=== PATIENT | male | born 1995 | race African-American/Black ===

== ENCOUNTER 2021-12-01 11:05 | Emergency (ER) | payer SELFPAY ==
[2021-12-01] MEDS ORDERED: MORPHINE 2 MG/ML SYR ONE (11:19)
[2021-12-01] MEDS ORDERED: NA CHLORIDE 0.9% 1,000 ML ONE ×2 (11:19→12:22)
[2021-12-01] MEDS ORDERED: ONDANSETRON 4 MG/2 ML VIAL ONE (11:19)
[2021-12-01] MEDS ORDERED: FAMOTIDINE 20 MG/2 ML VIAL IV ONE (11:19)
[2021-12-01 11:24] LABS: Absolute Lymphocytes (CBC) 2.5 K/uL (0.7-4.9); Hematocrit 48.6 % (39.6-49.0); Lymphocytes % 28.7 % (15.3-44.8); MPV 7.5 fL (7.6-11.3); RBC Red Blood Cell Count 5.78 M/uL (4.33-5.43)
--- NOTE | 2021-12-01 11:40 | RAD REPORT ---
EXAM DESCRIPTION: CTAbdomen Pelvis Wo Contrast - 12/01/2021 11:30 am CLINICAL HISTORY: ABD PAIN COMPARISON: Abdomen Pelvis W Contrast dated 11/06/2021; Abdomen Pelvis W Contrast dated 10/06/2018 ; Abdomen Pelvis W Contrast dated 10/28/2016; CT ABD PELVIS W CONTRAST dated 01/13/2014No comparisons TECHNIQUE: CT of the abdomen and pelvis was performed. All CT scans are performed using dose optimization technique as appropriate and may include automated exposure control or mA/KV adjustment according to patient size. FINDINGS: Lower chest: No acute abnormality. Liver: No acute abnormality or suspicious lesions. Biliary: No biliary ductal dilatation. Stomach: No significant focal abnormality. Duodenum: No significant focal abnormality. Pancreas: No significant abnormality. Spleen: No significant abnormality. Adrenal: No suspicious lesions. Kidney/ureter: No hydronephrosis. No renal calculi. Retroperitoneum: No retroperitoneal adenopathy. Vascular: No aneurysm. Bowel: Multiple air-fluid levels are present within the small bowel. No transition point to suggest b owel obstruction this time.. Peritoneum: Mesenteric edema cyst with a small bowel. Prominent mesenteric lymph nodes. Bladder: Grossly unremarkable. Reproductive: No adnexal masses. Bones: No acute fracture. Other: n/a IMPRESSION: Small air-fluid levels the small bowel and mesenteric edema without discrete transition point likely reflecting an enteritis. No bowel obstruction. Normal appendix.
[2021-12-01] MEDS ORDERED: HYDROMORPHONE HCL 1 MG/ML INJ ONE (11:45)
[2021-12-01 12:12] LABS: ALT/SGPT 128 U/L (12-78); AST/SGOT 74 U/L (15-37); Alkaline Phosphatase 75 U/L (45-117); BUN Blood Urea Nitrogen 13 mg/dL (7-18); Bicarbonate 19 mmol/L (21-32); Bilirubin Total 0.6 mg/dL (0.2-1.0); Glucose Level 153 mg/dL (74-106); Lipase 874 U/L (73-393); Potassium 3.7 mmol/L (3.5-5.1); Protein, Total 7.8 g/dL (6.4-8.2); Sodium Level 139 mmol/L (136-145)
[2021-12-01] MEDS ORDERED: METOCLOPRAMIDE 10 MG/2mL INJ ONE (12:21)
[2021-12-01] MEDS ORDERED: LORazepam 2 MG/ML VIAL ONE (12:22)
--- NOTE | 2021-12-01 13:16 | RAD REPORT ---
EXAM DESCRIPTION: US - Abdomen Exam Limited - 12/01/2021 1:08 pm CLINICAL HISTORY: ABD PAIN COMPARISON: Abdomen Pelvis Wo Contrast dated 12/01/2021 FINDINGS: The gallbladder demonstrates no gallstones. No pericholecystic fluid or gallbladder wall t hickening. The common bile duct is normal measuring 2 mm. The liver demonstrates no findings of intrahepatic biliary dilatation. IMPRESSION: Unremarkable examination.
--- NOTE | 2021-12-01 13:34 | ER ---
Nurse's Notes [facility] Name: Anthony Sotomayor Jr Age: 26 yrs Sex: Male : 1995 Arrival Date: 12/01/2021 Time: 11:06 Bed 19 Private MD: Diagnosis: Nausea with vomiting, unspecified;Epigastric abdominal tenderness;Other viral enteritis Presentation: 12/01 11:10 Chief complaint: EMS states: Sudden onset of severe epigastric discomfort just prior to ss arrival. Pt belched en route to ED and reports that his pain is significantly better, 10/03. Coronavirus screen: Client denies travel out of the [place] in the last 14 days. Ebola Screen: Patient denies exposure to infectious person. Patient denies travel to an Ebola-affected area in the 21 days before illness onset. Initial Sepsis Screen: Does the patient meet any 2 criteria? No. Patient's initial sepsis screen is negative. Does the patient have a suspected source of infection? No. Patient's initial sepsis screen is negative. Risk Assessment: Do you want to hurt yourself or someone else? Patient reports no desire to harm self or others. Onset of symptoms was December 01, 2021. 11:10 Method Of Arrival: EMS: [facility] ss 11:10 Acuity: KAMRAN 3 ss Historical: - Allergies: 11:12 Bees; ss 11:12 Iodine; ss 11:12 SHELLFISH; ss - Home Meds: 11:12 None [Active]; ss - PMHx: 11:12 Asthma; ss - PSHx: 11:12 None; ss - Immunization history:: Client reports having NOT received the Covid vaccine. - Social history:: Smoking status: Reported history of juuling and/or vaping. - Family history:: not pertinent. Screenin:33 Abuse screen: Denies threats or abuse. Denies injuries from another. Nutritional ww screening: No deficits noted. Tuberculosis screening: No symptoms or risk factors identified. Fall Risk None identified. Assessment: 11:32 General: Appears in no apparent distress. uncomfortable, Behavior is cooperative. Pain: ww Complains of pain in epigastric area, right upper quadrant and left upper quadrant. Neuro: Level of Consciousness is awake, alert, obeys commands, Oriented to person, place, time, situation, Moves all extremities. Speech is normal. Cardiovascular: Capillary refill < 3 seconds Patient's skin is warm and dry. Respiratory: Airway is patent Respiratory effort is even, unlabored, Respiratory pattern is regular, symmetrical. GI: Abdomen is non-distended, Reports indigestion, nausea. : No signs and/or symptoms were reported regarding the genitourinary system. EENT: No signs and/or symptoms were reported regarding the EENT system. Derm: No signs and/or symptoms reported regarding the dermatologic system. Skin is intact, is healthy with good turgor, Skin is pink, warm \T\ dry. 11:55 General: Appears uncomfortable, Behavior is anxious, crying. Neuro:. Cardiovascular:. ww Derm: Skin is diaphoretic. 12:30 Reassessment: Patient and/or family updated on plan of care and expected duration. Pain ww level reassessed. General: Appears in no apparent distress. Behavior is sleeping. 13:19 Reassessment: Dr. Nelson at bedside reassessing patient at this time and discussing ss results/ plan of care. 13:50 Reassessment: Patient appears in no apparent distress at this time. Patient and/or ww family updated on plan of care and expected duration. Pain level reassessed. Patient is alert, oriented x 3, equal unlabored respirations, skin warm/dry/pink. General: Appears in no apparent distress. comfortable, Behavior is calm, cooperative. Respiratory: Airway is patent Respiratory effort is even, unlabored, Respiratory pattern is regular, symmetrical. 14:20 Reassessment: Patient appears in no apparent distress at this time. No changes from ww previously documented assessment. Patient and/or family updated on plan of care and expected duration. Pain level reassessed. Patient is alert, oriented x 3, equal unlabored respirations, skin warm/dry/pink. Vital Signs: 11:10 BP 122 / 79; Pulse 60; Resp 15; Temp 97.5(TE); Pulse Ox 97% on R/A; Height 6 ft. 1 in. ss (185.42 cm); Pain 2/10; 13:45 BP 109 / 49; Pulse 58; Resp 16; Pulse Ox 97% on R/A; ww 14:30 BP 107 / 49; Pulse 76; Resp 16; Pulse Ox 98% on R/A; ww 15:03 BP 109 / 50; Pulse 56; Resp 16; Pulse Ox 96% on R/A; ww ED Course: 11:06 Patient arrived in ED. ds1 11:06 Aiden Nelson MD is Attending Physician. dom 11:12 Triage completed. ss 11:12 Arabella Espinoza, RN is Primary Nurse. ww 11:12 Arm band placed on right wrist. ss 11:31 Abdomen In Process Unspecified. EDMS 11:33 Patient has correct armband on for positive identification. Bed in low position. Call ww light in reach. Side rails up X 1. Adult w/ patient. Pulse ox on. NIBP on. 11:33 Maintain EMS IV. Dressing intact. Good blood return noted. Site clean \T\ dry. Gauge \T\ ww site: 20g left ac. 12:10 Inserted saline lock: 20 gauge in right antecubital area, using aseptic technique. ww 13:10 US Abdomen Limited In Process Unspecified. EDMS 13:31 Sylvester Hart MD is Referral Physician. dom 15:04 No provider procedures requiring assistance completed. IV discontinued, bleeding ww controlled, No redness/swelling at site. Pressure dressing applied. Administered Medications: 11:15 Drug: NS 0.9% 1000 ml Route: IV; Rate: 1 bolus; Site: left antecubital; ww 11:15 Drug: morphine 2 mg Route: IVP; Site: left antecubital; ww 11:18 Drug: Zofran (Ondansetron) 4 mg Route: IVP; Site: left antecubital; ww 11:21 Drug: Pepcid (famotidine) 20 mg Route: IVP; Site: left antecubital; ww 11:43 Drug: Dilaudid (HYDROmorphone) 1 mg Route: IVP; Site: left antecubital; jh6 12:18 Drug: Reglan (metoCLOPramide) 10 mg Route: IVP; Site: right antecubital; ww 12:24 Drug: Ativan (LORazepam) 1 mg Route: IVP; Site: right antecubital; ww 13:30 Drug: NS 0.9% 1000 ml Route: IV; Rate: 1 bolus; Site: right antecubital; ww Outcome: 13:34 Discharge ordered by . dom 15:05 Patient left the ED. ww Signatures: Dispatcher [employer] EDAiden Coronado MD MD cha Sanford, Demi ds1 Savannah Rodriguez, RN RN ss Korina Frye, RN RN jh6 Arabella Espinoza, RN RN ww
--- NOTE | 2021-12-01 13:35 | EDPHYS ---
Physician Documentation [facility] Name: Anthony Sotomayor Jr Age: 26 yrs Sex: Male : 1995 Arrival Date: 12/01/2021 Time: 11:06 Bed 19 Private MD: ED Physician Aiden Nelson HPI: 12/01 11:14 This 26 yrs old Black Male presents to ER via EMS with complaints of upper abdominal dom pain this morning. 11:14 The patient presents with abdominal pain in the epigastric area, in the upper abdomen. dom Onset: The symptoms/episode began/occurred this morning, today. The patient presents to the emergency department with nausea, that is moderate. Onset: The symptoms/episode began/occurred this morning. Possible causes: unknown. The symptoms are aggravated by nothing. The symptoms are alleviated by nothing. The symptoms do not radiate. Associated signs and symptoms: The patient has no apparent associated signs or symptoms. Associated signs and symptoms: Pertinent positives: nausea and vomiting. Modifying factors: The symptoms are alleviated by nothing, the symptoms are aggravated by nothing. Historical: - Allergies: 11:12 Bees; ss 11:12 Iodine; ss 11:12 SHELLFISH; ss - Home Meds: 11:12 None [Active]; ss - PMHx: 11:12 Asthma; ss - PSHx: 11:12 None; ss - Immunization history:: Client reports having NOT received the Covid vaccine. - Social history:: Smoking status: Reported history of juuling and/or vaping. - Family history:: not pertinent. ROS: 11:14 Constitutional: Negative for fever, chills, and weight loss, Eyes: Negative for injury, dom pain, redness, and discharge, ENT: Negative for injury, pain, and discharge, Neck: Negative for injury, pain, and swelling, Cardiovascular: Negative for chest pain, palpitations, and edema, Respiratory: Negative for shortness of breath, cough, wheezing, and pleuritic chest pain, Back: Negative for injury and pain, : Negative for injury, bleeding, discharge, and swelling, MS/Extremity: Negative for injury and deformity, Skin: Negative for injury, rash, and discoloration, Neuro: Negative for headache, weakness, numbness, tingling, and seizure, Psych: Negative for depression, anxiety, suicide ideation, homicidal ideation, and hallucinations, Allergy/Immunology: Negative for hives, rash, and allergies, Endocrine: Negative for neck swelling, polydipsia, polyuria, polyphagia, and marked weight changes, Hematologic/Lymphatic: Negative for swollen nodes, abnormal bleeding, and unusual bruising. 11:14 Abdomen/GI: Positive for abdominal pain, nausea and vomiting, vomiting, of the epigastric area, right upper quadrant and left upper quadrant. Exam: 11:14 Constitutional: This is a well developed, well nourished patient who is awake, alert, dom and in no acute distress. Head/Face: Normocephalic, atraumatic. Eyes: Pupils equal round and reactive to light, extra-ocular motions intact. Lids and lashes normal. Conjunctiva and sclera are non-icteric and not injected. Cornea within normal limits. Periorbital areas with no swelling, redness, or edema. ENT: Nares patent. No nasal discharge, no septal abnormalities noted. Tympanic membranes are normal and external auditory canals are clear. Oropharynx with no redness, swelling, or masses, exudates, or evidence of obstruction, uvula midline. Mucous membranes moist. Neck: Trachea midline, no thyromegaly or masses palpated, and no cervical lymphadenopathy. Supple, full range of motion without nuchal rigidity, or vertebral point tenderness. No Meningismus. Chest/axilla: Normal chest wall appearance and motion. Nontender with no deformity. No lesions are appreciated. Cardiovascular: Regular rate and rhythm with a normal S1 and S2. No gallops, murmurs, or rubs. Normal PMI, no JVD. No pulse deficits. Respiratory: Lungs have equal breath sounds bilaterally, clear to auscultation and percussion. No rales, rhonchi or wheezes noted. No increased work of breathing, no retractions or nasal flaring. Back: No spinal tenderness. No costovertebral tenderness. Full range of motion. Male : Normal genitalia with no discharge or lesions. Skin: Warm, dry with normal turgor. Normal color with no rashes, no lesions, and no evidence of cellulitis. MS/ Extremity: Pulses equal, no cyanosis. Neurovascular intact. Full, normal range of motion. Neuro: Awake and alert, GCS 15, oriented to person, place, time, and situation. Cranial nerves II-XII grossly intact. Motor strength 5/5 in all extremities. Sensory grossly intact. Cerebellar exam normal. Normal gait. Psych: Awake, alert, with orientation to person, place and time. Behavior, mood, and affect are within normal limits. 11:14 Respiratory: mild respiratory distress is noted, Respirations: normal, no acute changes, Breath sounds: are clear throughout. 11:14 Abdomen/GI: Inspection: abdomen appears normal, Bowel sounds: normal, Palpation: moderate abdominal tenderness, in the epigastric area and left upper quadrant, Liver: no appreciated palpable abnormalities, Hernia: not appreciated. 12:16 ECG was reviewed by the Attending Physician. [facility] Vital Signs: 11:10 BP 122 / 79; Pulse 60; Resp 15; Temp 97.5(TE); Pulse Ox 97% on R/A; Height 6 ft. 1 in. ss (185.42 cm); Pain 2/10; 13:45 BP 109 / 49; Pulse 58; Resp 16; Pulse Ox 97% on R/A; ww 14:30 BP 107 / 49; Pulse 76; Resp 16; Pulse Ox 98% on R/A; ww 15:03 BP 109 / 50; Pulse 56; Resp 16; Pulse Ox 96% on R/A; ww MDM: 11:07 Patient medically screened. [facility] 11:19 Differential diagnosis: Nonspecific abd pain, gastritis, diverticulitis, viral dom gastroenteritis, gastroenteritis, cholecystitis, Cholelithiasis, diverticulitis, non-specific abd pain, pancreatitis, Peptic Ulcer Disease, urinary tract infection. Data reviewed: vital signs, nurses notes, lab test result(s), radiologic studies, CT scan, ultrasound. Data interpreted: Pulse oximetry: on room air is 97 %. Test interpretation: by ED physician or midlevel provider: ECG, plain radiologic studies. Counseling: I had a detailed discussion with the patient and/or guardian regarding: the historical points, exam findings, and any diagnostic results supporting the discharge/admit diagnosis, lab results, radiology results. 12/01 11:07 Order name: CBC with Diff; Complete Time: 11:40 [facility] 12/01 11:07 Order name: CMP [facility] 12/01 11:07 Order name: Lipase [facility] 12/01 11:13 Order name: US Abdomen Limited [facility] 12/01 11:51 Order name: COVID-19 SARS RT PCR (Document "Date of Onset" if Symptomatic) 12/01 11:20 Order name: Abdomen ; Complete Time: 11:42 EDMS 12/01 11:07 Order name: IV Saline Lock; Complete Time: 11:24 dom 12/01 11:07 Order name: Labs collected and sent; Complete Time: 11:24 dom 12/01 11:40 Order name: EKG; Complete Time: 11:40 dom 12/01 11:40 Order name: EKG - Nurse/Tech; Complete Time: 11:49 dom 12/01 11:41 Order name: Labs - recollect needed: recollect green top hemolyzed; Complete Time: 11:49eb EC:16 Rate is 82 beats/min. Rhythm is regular. QRS [place] is Normal. ME interval is normal. QRS dom interval is normal. QT interval is normal. No Q waves. T waves are Normal. No ST changes noted. Clinical impression: LVH and No evidence of ischemia. Interpreted by me. Reviewed by me. Administered Medications: 11:15 Drug: NS 0.9% 1000 ml Route: IV; Rate: 1 bolus; Site: left antecubital; ww 11:15 Drug: morphine 2 mg Route: IVP; Site: left antecubital; ww 11:18 Drug: Zofran (Ondansetron) 4 mg Route: IVP; Site: left antecubital; ww 11:21 Drug: Pepcid (famotidine) 20 mg Route: IVP; Site: left antecubital; ww 11:43 Drug: Dilaudid (HYDROmorphone) 1 mg Route: IVP; Site: left antecubital; [facility] 12:18 Drug: Reglan (metoCLOPramide) 10 mg Route: IVP; Site: right antecubital; ww 12:24 Drug: Ativan (LORazepam) 1 mg Route: IVP; Site: right antecubital; ww 13:30 Drug: NS 0.9% 1000 ml Route: IV; Rate: 1 bolus; Site: right antecubital; ww Disposition Summary: 12/01/21 13:34 Discharge Ordered Location: Home dom Problem: new dom Symptoms: have improved dom Condition: Stable dom Diagnosis - Nausea with vomiting, unspecified dom - Epigastric abdominal tenderness dom - Other viral enteritis dom Followup: dom - With: Private Physician - When: 2 - 3 days - Reason: Recheck today's complaints, Continuance of care, Re-evaluation by your physician Followup: dom - With: Sylvester Hart MD - When: 2 - 3 days - Reason: Recheck today's complaints, Re-evaluation by your physician Discharge Instructions: - Discharge Summary Sheet dom - Abdominal Pain, Adult dom - Nausea and Vomiting, Adult dom - Nausea, Adult dom - Acute Pancreatitis dom - Acute Pancreatitis, [id number] dom - Abdominal Pain, Adult, [id number] dom - Alcohol Abuse and Nutrition dom - Nausea, Adult, [id number] dom - Vomiting, Adult [facility] Forms: - Medication Reconciliation Form [facility] - Thank You Letter [facility] - Antibiotic Education [facility] - Prescription Opioid Use [facility] Prescriptions: - Pepcid 20 mg Oral Tablet - take 1 tablet by ORAL route every 12 hours for 15 days; 30 tablet; Refills: 0, [facility] Product Selection Permitted - Zofran 4 mg Oral Tablet - take 1 tablet by ORAL route every 12 hours As needed; 20 tablet; Refills: 0, [facility] Product Selection Permitted - dicyclomine 20 mg Oral Tablet - take 1 tablet by ORAL route 4 times per day; 28 tablet; Refills: 0, Product [facility] Selection Permitted Signatures: Dispatcher [employer] EDAiden Coronado MD MD cha Smirch, Shelby, RN RN ss Emily Olivera Jennifer, RN RN jh Arabella Espinoza RN RN ww Corrections: (The following items were deleted from the chart) 11:20 11:13 Abdomen Pelvis W [id number] ordered. EDMN EDMS
[2021-12-01 15:57] VITALS: TEMP 97.5
[2021-12-01 16:02] VITALS: BP 109/50; O2SAT 96
--- NOTE | 2021-12-02 09:38 | EKG ---
Test Date: 2021-12-01 Test Time: 11:42:57 Hardware Manager: JAIMIE MEASUREMENT RESULTS: Intervals: Rate: 82 AK: 144 QRSD: 98 QT: 400 QTc: 467 [place]: P: 39 AK: 144 QRS: -28 T: 7 INTERPRETIVE STATEMENTS: Sinus rhythm with marked sinus arrhythmia Minimal voltage criteria for LVH, may be normal variant Nonspecific T wave abnormality Prolonged QT Abnormal ECG No previous ECG available for comparison Electronically Signed On 12-02-21 09:35:41 CDT by Channing Calloway
--- NOTE | 2021-12-02 09:38 | EKG ---
Test Date: 2021-12-01 Test Time: 11:43:35 Health Information Director: JAIMIE MEASUREMENT RESULTS: Intervals: Rate: 83 WV: 150 QRSD: 92 QT: 376 QTc: 441 [place]: P: 51 WV: 150 QRS: -29 T: 7 INTERPRETIVE STATEMENTS: Normal sinus rhythm with sinus arrhythmia Moderate voltage criteria for LVH, may be normal variant Nonspecific ST abnormality Abnormal ECG Compared to ECG 12/01/2021 11:42:57 ST (T wave) deviation now present T-wave abnormality no longer present Prolonged QT interval no longer present Electronically Signed On 12-02-21 09:35:39 CDT by Channing Calloway
== END 2021-12-01 15:05 | disposition home or self-care (01) ==
LOC: ER 11:05
DX: A08.39 Other viral enteritis (principal); R11.2 Nausea with vomiting, unspecified; Z20.822 Contact with and (suspected) exposure to COVID-19; Z91.013 Allergy to seafood; Z91.030 Bee allergy status; Z91.048 Other nonmedicinal substance allergy status
CPT/HCPCS: 36415; 74176; 76705; 80053; 83690; 85025; 93005; 99284; J1170; J2270; J2405; J2765; J7030; U0003

== ENCOUNTER 2022-08-31 12:11 | Emergency (ER) | payer SELFPAY ==
[2022-08-31 13:11] LABS: Absolute Lymphocytes (CBC) 2.6 K/uL (0.7-4.9); Hematocrit 46.7 % (39.6-49.0); Lymphocytes % 40.6 % (15.3-44.8); MCV 83.7 fL (80-100); MPV 7.5 fL (7.6-11.3); RBC Red Blood Cell Count 5.58 M/uL (4.33-5.43)
[2022-08-31] MEDS ORDERED: MORPHINE 4 MG/ML SYR ONE (13:14)
[2022-08-31] MEDS ORDERED: Ringers Lactate 1,000 ML IV ONE (13:14)
[2022-08-31] MEDS ORDERED: ONDANSETRON 4 MG/2 ML VIAL ONE (13:14)
[2022-08-31 13:28] LABS: Albumin 3.9 g/dL (3.4-5.0); Bilirubin Total 0.4 mg/dL (0.2-1.0); Potassium 3.8 mmol/L (3.5-5.1); Protein, Total 7.8 g/dL (6.4-8.2)
--- NOTE | 2022-08-31 14:22 | RAD REPORT ---
EXAM DESCRIPTION: CT - Abdomen Pelvis Wo Contrast - 08/31/2022 2:09 pm CLINICAL HISTORY: Abdominal pain. epigastric pain COMPARISON: Abdomen Pelvis Wo Contrast dated 12/01/2021 TECHNIQUE: CT imaging of the abdomen and pelvis was performed without contrast. Solid organ, bowel a nd vascular assessment is limited due to lack of IV and oral contrast. All CT scans are performed using dose optimization technique as appropriate and may include automated exposure control or mA/KV adjustment according to patient size. FINDINGS: The lower lung prince are clear. The liver, spleen, pancreas, adrenal glands and kidneys are within normal limits for a limited non-co ntrast examination. No bowel obstruction, free air, free fluid or abscess. The appendix is normal. The osseous structures are within normal limits. IMPRESSION: No acute intra-abdominal or pelvic findings. A limited non-contrast examination was performed as detailed.
[2022-08-31] MEDS ORDERED: MAGNES/ALUMIN/SIMET 30ML UCUP ONE (14:51)
[2022-08-31] MEDS ORDERED: LIDOCAINE VISCOUS 2% SOLN 15 ML UDC ONE (14:51)
--- NOTE | 2022-08-31 15:40 | EDPHYS ---
Physician Documentation [facility] Name: Anthony Sotomayor Jr Age: 26 yrs Sex: Male : 1995 Arrival Date: 08/31/2022 Time: 12:11 Bed 24 Private MD: ED Physician Parmjit Shanks HPI: 08/31 15:36 This 26 yrs old Black Male presents to ER via Wheelchair with complaints of Abdominal jmm Pain. 15:36 The patient presents with abdominal pain. Onset: The symptoms/episode began/occurred jmm gradually, 5 day(s) ago. The symptoms do not radiate. Associated signs and symptoms: Pertinent positives: diarrhea. Is a 26-year-old male with history of asthma the presents emerged department with complaints of epigastric abdominal pain began approximately 5 days ago. Symptoms initially began as multiple episodes of diarrhea. States that the pain intensified today. Denies any vomiting but states being nauseous. Denies any surgical abdominal history.. Historical: - Allergies: 12:16 Bees; hb 12:16 Iodine; hb 12:16 SHELLFISH; hb - PMHx: 12:16 Asthma; hb - Immunization history:: Adult Immunizations unknown, Last tetanus immunization: unknown. - Social history:: Smoking status: Patient denies any tobacco usage or history of. ROS: 15:36 Constitutional: Negative for fever, chills, and weight loss, Cardiovascular: Negative jmm for chest pain, palpitations, and edema, Respiratory: Negative for shortness of breath, cough, wheezing, and pleuritic chest pain. 15:36 Abdomen/GI: Positive for abdominal pain, diarrhea. 15:36 All other systems are negative. Exam: 15:36 Constitutional: This is a well developed, well nourished patient who is awake, alert, jmm and in no acute distress. Head/Face: atraumatic. Eyes: EOMI, no conjunctival erythema appreciated ENT: Moist Mucus Membranes Neck: Trachea midline, Supple Chest/axilla: Normal chest wall appearance and motion. Cardiovascular: Regular rate and rhythm. No edema appreciated Respiratory: Normal respirations, no respiratory distress appreciated 15:36 Back: Normal ROM Skin: General appearance color normal MS/ Extremity: Moves all extremities, no obvious deformities appreciated, no edema noted to the lower extremities Neuro: Awake and alert Psych: Behavior is normal, Mood is normal, Patient is cooperative and pleasant 15:36 Abdomen/GI: Inspection: abdomen appears normal, Bowel sounds: normal, Palpation: soft, mild abdominal tenderness, in the epigastric area. Vital Signs: 12:14 BP 97 / 65; Pulse 55; Resp 16; Temp 97.7; Pulse Ox 100% on R/A; Weight 122.47 kg; hb Height 6 ft. 1 in. (185.42 cm); Pain 7/10; 13:45 BP 134 / 74; Pulse 56; Resp 18; Pulse Ox 99% ; kb3 15:00 BP 116 / 66; Pulse 63; Resp 18; Pulse Ox 98% ; kb3 12:14 Body Mass Index 35.62 (122.47 kg, 185.42 cm) hb MDM: 12:26 Patient medically screened. [facility] 15:37 Data reviewed: vital signs, nurses notes. Counseling: I had a detailed discussion with [facility] the patient and/or guardian regarding: the historical points, exam findings, and any diagnostic results supporting the discharge/admit diagnosis, lab results, radiology results, the need for outpatient follow up, to return to the emergency department if symptoms worsen or persist or if there are any questions or concerns that arise at home. Response to treatment: the patient's symptoms have markedly improved after treatment, and as a result, I will discharge patient. ED course: Patient given early appendicitis return precautions. Patient understood and agrees plan of care.. 08/31 12:27 Order name: CBC with Diff; Complete Time: 13:14 [facility] 08/31 12:27 Order name: CMP; Complete Time: 13:30 [facility] 08/31 12:27 Order name: Lipase; Complete Time: 13:30 [facility] 08/31 13:22 Order name: CT Abd/Pelvis - Without Contrast; Complete Time: 14:23 [facility] 08/31 12:27 Order name: IV Saline Lock; Complete Time: 13:45 [facility] 08/31 12:27 Order name: Labs collected and sent; Complete Time: 13:06 [facility] Administered Medications: 13:45 Drug: Zofran (Ondansetron) 4 mg Route: IVP; Site: right hand; jl7 14:40 Follow up: Response: No adverse reaction [facility] 13:45 Drug: morphine 4 mg Route: IVP; Infused Over: 4 mins; Site: right hand; jl7 14:40 Follow up: Response: No adverse reaction; Pain is decreased kb3 13:45 Drug: Lactated Ringers Solution 1000 ml Route: IV; Rate: 1000 bolus; Site: right hand; jl7 14:40 Follow up: Response: No adverse reaction; IV Status: Completed infusion; IV Intake: kb3 1000ml 14:53 Drug: GI Cocktail without - (Maalox Suspension 30 ml, Lidocaine Liquid 2 % 15 kb3 ml) Route: PO; 15:53 Follow up: Response: No adverse reaction; Pain is decreased kb3 Disposition: 16:22 Co-signature as Attending Physician, Parmjit Shanks MD. rn Disposition Summary: 08/31/22 15:39 Discharge Ordered Location: Home [facility] Condition: Stable [facility] Diagnosis - Epigastric pain [facility] Followup: [facility] - With: Yovany Stubbs MD - When: 2 - 3 days - Reason: Recheck today's complaints, Continuance of care, Re-evaluation by your physician Followup: [facility] - With: Syvlester Hart MD - When: 2 - 3 days - Reason: Recheck today's complaints, Continuance of care, Re-evaluation by your physician Followup: jmm - With: Adelso Montoya MD - When: 2 - 3 days - Reason: Recheck today's complaints, Continuance of care, Re-evaluation by your physician Discharge Instructions: - Discharge Summary Sheet [facility] - Abdominal Pain, Adult [facility] Forms: - Medication Reconciliation Form [facility] - Thank You Letter [facility] - Antibiotic Education [facility] - Prescription Opioid Use [facility] - Work release form kb3 Prescriptions: - Carafate 1 gram Oral Tablet - take 1 tablet by ORAL route 4 times per day take on an empty stomach, beginning jmm on waking and last dose at bedtime; 100 tablet; Refills: 0, Product Selection Permitted - Pepcid 20 mg Oral Tablet - take 1 tablet by ORAL route every 12 hours for 10 days; 20 tablet; Refills: 0, [facility] Product Selection Permitted - dicyclomine 20 mg Oral Tablet - take 1 tablet by ORAL route 4 times per day; 30 tablet; Refills: 0, Product [facility] Selection Permitted - ondansetron 4 mg Oral - take 4 milligrams by SUBLINGUAL route every 4-6 hours As needed; 20 tablet; [facility] Refills: 0, Product Selection Permitted Signatures: Dispatcher [employer] Silvino Garcias PA PA jmm Nieto, Roman, MD MD rn Shayna Arevalo RN RN Roby Parra RN RN jl7 Radha Man RN RN kb3
--- NOTE | 2022-08-31 15:40 | ER ---
Nurse's Notes [facility] Name: Anthony Sotomayor Jr Age: 26 yrs Sex: Male : 1995 Arrival Date: 08/31/2022 Time: 12:11 Bed 24 Private MD: Diagnosis: Epigastric pain Presentation: 08/31 12:14 Chief complaint: Diarrhea x 5 days, upper abdominal pain since this morning. hb Coronavirus screen: At this time, the client does not indicate any symptoms associated with coronavirus-19. Ebola Screen: No symptoms or risks identified at this time. Initial Sepsis Screen: Does the patient meet any 2 criteria? No. Patient's initial sepsis screen is negative. Does the patient have a suspected source of infection? No. Patient's initial sepsis screen is negative. Risk Assessment: Do you want to hurt yourself or someone else? Patient reports no desire to harm self or others. Onset of symptoms was August 26, 2022. 12:14 Method Of Arrival: Wheelchair hb 12:14 Acuity: KAMRAN 3 hb Historical: - Allergies: 12:16 Bees; hb 12:16 Iodine; hb 12:16 SHELLFISH; hb - PMHx: 12:16 Asthma; hb - Immunization history:: Adult Immunizations unknown, Last tetanus immunization: unknown. - Social history:: Smoking status: Patient denies any tobacco usage or history of. Screenin:30 [facility] ED Fall Risk Assessment (Adult) History of falling in the last 3 months, kb3 including since admission No falls in past 3 months (0 pts) Confusion or Disorientation No (0 pts) Intoxicated or Sedated No (0 pts) Impaired Gait No (0 pts) Mobility Assist Device Used No (0 pt) Altered Elimination No (0 pt) Score/Fall Risk Level 0 - 2 = Low Risk Oriented to surroundings, Maintained a safe environment, Educated pt \T\ family on fall prevention, incl call for assistance when getting out of bed, Assessed \T\ reinforced patient's understanding of fall precautions, Provided non-skid footwear, Hourly rounding (assess needs \T\ fall precautionary measures) done, Used ambulatory aids as needed (educated on \T\ assisted with), Used gait belt as appropriate. Abuse screen: Denies threats or abuse. Denies injuries from another. Nutritional screening: No deficits noted. Tuberculosis screening: No symptoms or risk factors identified. Assessment: 12:30 General: Appears in no apparent distress. Behavior is calm, cooperative. Pain: kb3 Complains of pain in epigastric area Pain does not radiate. Pain currently is 7 out of 10 on a pain scale. Quality of pain is described as crampy, sharp, Pain began 4 hours ago. Also complains of Diarrhea. 12:30 GI: Bowel sounds present X 4 quads. Abd is soft Abdomen is tender to palpation in kb3 epigastric area, right upper quadrant and left upper quadrant Reports upper abdominal pain, diarrhea. 15:30 Reassessment: Patient appears in no apparent distress at this time. General: Pt reports kb3 feeling better, No episodes of diarrhea since arrival. Vital Signs: 12:14 BP 97 / 65; Pulse 55; Resp 16; Temp 97.7; Pulse Ox 100% on R/A; Weight 122.47 kg; hb Height 6 ft. 1 in. (185.42 cm); Pain 7/10; 13:45 BP 134 / 74; Pulse 56; Resp 18; Pulse Ox 99% ; kb3 15:00 BP 116 / 66; Pulse 63; Resp 18; Pulse Ox 98% ; kb3 12:14 Body Mass Index 35.62 (122.47 kg, 185.42 cm) hb ED Course: 12:11 Patient arrived in ED. as 12:16 Triage completed. hb 12:16 Silvino Bowers PA is PHCP. [facility] 12:16 Parmjit Shanks MD is Attending Physician. [facility] 12:16 Arm band placed on. hb 12:30 No provider procedures requiring assistance completed. kb3 12:49 Patient has correct armband on for positive identification. Bed in low position. Call mm9 light in reach. Warm blanket given. Pulse ox on. NIBP on. 13:00 Missed attempt(s): 22 gauge in left antecubital area. mm9 13:06 CBC with Diff Sent. mm9 13:06 CMP Sent. mm9 13:06 Lipase Sent. mm9 13:06 Initial lab(s) drawn, by wv, sent to lab. mm9 13:30 Missed attempt(s): 20 gauge in right antecubital area. Bleeding controlled, band aid jl7 applied, catheter tip intact. 13:32 Radha Man, RN is Primary Nurse. kb3 13:32 Missed attempt(s): 22 gauge in right antecubital area. Bleeding controlled, band aid jl7 applied, catheter tip intact. 13:38 Missed attempt(s): 22 gauge in right forearm. Bleeding controlled, band aid applied, jl7 catheter tip intact. 13:40 Inserted saline lock: 22 gauge in right hand, using aseptic technique. ,using aseptic jl7 technique. Inserted per pt request. 14:[address] via wheelchair. kb3 14:10 CT Abd/Pelvis - Without Contrast In Process Unspecified. EDMS 14:16 Patient [address] back from [address]. kb3 15:38 Yovany Stubbs MD is Referral Physician. jmm 15:38 Sylvester Hart MD is Referral Physician. jmm 15:39 Adelso Montoya MD is Referral Physician. [facility] 15:53 IV discontinued, intact, bleeding controlled, No redness/swelling at site. Pressure kb3 dressing applied. Administered Medications: 13:45 Drug: Zofran (Ondansetron) 4 mg Route: IVP; Site: right hand; jl7 14:40 Follow up: Response: No adverse reaction kb3 13:45 Drug: morphine 4 mg Route: IVP; Infused Over: 4 mins; Site: right hand; jl7 14:40 Follow up: Response: No adverse reaction; Pain is decreased kb3 13:45 Drug: Lactated Ringers Solution 1000 ml Route: IV; Rate: 1000 bolus; Site: right hand; jl7 14:40 Follow up: Response: No adverse reaction; IV Status: Completed infusion; IV Intake: kb3 1000ml 14:53 Drug: GI Cocktail without - (Maalox Suspension 30 ml, Lidocaine Liquid 2 % 15 kb3 ml) Route: PO; 15:53 Follow up: Response: No adverse reaction; Pain is decreased kb3 Medication: 12:30 VIS not applicable for this client. kb3 Intake: 14:40 IV: 1000ml; Total: 1000ml. kb3 Outcome: 15:39 Discharge ordered by . jm 15:50 Discharged to home ambulatory, with family. kb3 15:50 Condition: stable 15:50 Discharge instructions given to patient, family, Instructed on discharge instructions, the need for admit, medication usage, Demonstrated understanding of instructions, follow-up care, medications, Prescriptions given X 4. 16:10 Patient left the ED. kb3 Signatures: Dispatcher [employer] EDMS Silvino Bowers PA PA jmm Martinez, Amelia as Baxter, Heather RN RN Roby Parra RN RN jl7 Radha Man RN RN kb3 Caryn Fairbanks mm9 Corrections: (The following items were deleted from the chart) 14:08 14:06 General: Appears in no apparent distress. Behavior is calm, cooperative, kb3 kb3 14:08 14:06 Pain: Complains of pain in epigastric area kb3 kb3
[2022-08-31 16:26] VITALS: TEMP 97.7
[2022-08-31 16:38] VITALS: BP 116/66; O2SAT 98
== END 2022-08-31 16:10 | disposition home or self-care (01) ==
LOC: ER 12:11
DX: R10.13 Epigastric pain (principal); Z91.030 Bee allergy status; Z91.013 Allergy to seafood; Z91.048 Other nonmedicinal substance allergy status
CPT/HCPCS: 36415; 74176; 80053; 83690; 85025; 96361; 96374; 96375; 99284; J2405; J7120

== ENCOUNTER 2024-06-06 05:31 | Emergency (ER) | payer SELFPAY ==
[2024-06-06] MEDS ORDERED: MAGNES/ALUMIN/SIMET 30ML UCUP ONE (06:06)
[2024-06-06] MEDS ORDERED: LIDOCAINE VISCOUS 2% 10ML ORAL SOLN ONE (06:07)
[2024-06-06] MEDS ORDERED: PANTOPRAZOLE 40 MG INJ ONE (06:14)
[2024-06-06] MEDS ORDERED: NA CHLORIDE 0.9% 1,000 ML ONE (06:15)
[2024-06-06 06:24] LABS: Absolute Eosinophils 0.3 K/uL (0-0.5); Absolute Lymphocytes (CBC) 1.9 K/uL (0.7-4.9); Absolute Monocytes 0.8 K/uL (0.1-1.3); Absolute Neutrophil 3.5 K/uL (1.8-8.0); Basophils % 0.5 % (0-1.3); Eosinophils % 4.4 % (0-4.4); Hematocrit 52.2 % (39.6-49.0); Hemoglobin 17.7 g/dL (13.6-17.9); Lymphocytes % 29.8 % (15.3-44.8); MCH 28.1 pg (27.0-35.0); MCHC 33.9 g/dL (32.0-36.0); MCV 83.1 fL (80-100); MPV 8.2 fL (7.6-11.3); Monocytes % 11.7 % (3.3-12.3); Neutrophils % 53.6 % (41.7-73.7); Nucleated Red Blood Cells % 0.4 % (0-0); Platelets 279 thou/uL (152-406); RBC Red Blood Cell Count 6.28 M/uL (4.33-5.43); Red Cell Distribution Width 14.5 % (12.1-15.2)
[2024-06-06 06:46] LABS: Albumin 3.8 g/dL (3.4-5.0); Albumin/Globulin Ratio 0.9 (1.1-1.8); Anion Gap 8.5 mEq/L (5.0-15.0); Bilirubin Total 0.8 mg/dL (0.2-1.0); Globulin 4.2 g/dL (2.3-3.5); Potassium 3.5 mEq/L (3.5-5.1)
--- NOTE | 2024-06-06 07:03 | ER ---
Nurse's Notes [facility] Name: Anthony Sotomayor Jr Age: 28 yrs Sex: Male : 1995 Arrival Date: 06/06/2024 Time: 05:31 Bed 15 Private MD: Diagnosis: Epigastric pain;Acute gastritis without bleeding;Hyperglycemia, unspecified;Type 2 diabetes mellitus with hyperglycemia-new onset Presentation: 06/06 05:46 Chief complaint: Patient states: epigastric pain X1 HR. Coronavirus screen: Client lg3 denies travel out of the [place] in the last 14 days. At this time, the client does not indicate any symptoms associated with coronavirus-19. Ebola Screen: No symptoms or risks identified at this time. Initial Sepsis Screen: Does the patient meet any 2 criteria? No. Patient's initial sepsis screen is negative. Does the patient have a suspected source of infection? No. Patient's initial sepsis screen is negative. Risk Assessment: Do you want to hurt yourself or someone else? Patient reports no desire to harm self or others. Onset of symptoms was June 06, 2024. 05:46 Method Of Arrival: Ambulatory lg3 05:46 Acuity: KAMRAN 3 lg3 Triage Assessment: 05:47 General: Appears in no apparent distress. comfortable, Behavior is calm, cooperative. lg3 Pain: Complains of pain in epigastric area Pain does not radiate. EENT: No deficits noted. No signs and/or symptoms were reported regarding the EENT system. Neuro: No deficits noted. Osborne Agitation-Sedation Scale (RASS): 0 - Alert and Calm Level of Consciousness is awake, alert, obeys commands, Oriented to person, place, time, situation. Cardiovascular: No deficits noted. Denies chest pain, shortness of breath, Capillary refill < 3 seconds Clubbing of nail beds is absent JVD is absent Patient's skin is warm and dry. Respiratory: No deficits noted. Airway is patent Respiratory effort is even, unlabored, Respiratory pattern is regular, symmetrical. GI: Abdomen is round non-distended, Reports upper abdominal pain, gaseousness. : No deficits noted. No signs and/or symptoms were reported regarding the genitourinary system. Derm: No deficits noted. No signs and/or symptoms reported regarding the dermatologic system. Skin is intact, is healthy with good turgor, Skin is dry, Skin is normal, Skin temperature is warm. Musculoskeletal: No deficits noted. No signs and/or symptoms reported regarding the musculoskeletal system. Circulation, motion, and sensation intact. Range of motion: intact in all extremities. Historical: - Allergies: 05:47 Bees; lg3 05:47 Iodine; lg3 05:47 SHELLFISH; lg3 - Home Meds: 05:47 None [Active]; lg3 - PMHx: 05:47 Asthma; lg3 - PSHx: 05:47 None; lg3 - Immunization history:: Adult Immunizations up to date. - Infectious Disease History:: Denies. - Social history:: Smoking status: Reported history of juuling and/or vaping. Patient/guardian denies using alcohol, street drugs. - Family history:: not pertinent. Screenin:00 [facility] ED Fall Risk Assessment (Adult) History of falling in the last 3 months, kj2 including since admission No falls in past 3 months (0 pts) Confusion or Disorientation No (0 pts) Intoxicated or Sedated No (0 pts) Impaired Gait No (0 pts) Mobility Assist Device Used No (0 pt) Altered Elimination No (0 pt) Score/Fall Risk Level 0 - 2 = Low Risk Maintained a safe environment, Hourly rounding (assess needs \T\ fall precautionary measures) done. Abuse screen: Denies threats or abuse. Denies injuries from another. Nutritional screening: No deficits noted. Tuberculosis screening: No symptoms or risk factors identified. Assessment: 06:00 General: Appears in no apparent distress. uncomfortable, Behavior is calm, cooperative. kj2 Pain: Complains of pain in epigastric area Pain currently is 8 out of 10 on a pain scale. Neuro: Level of Consciousness is awake, alert, obeys commands, Oriented to person, place, time, situation. Cardiovascular: Patient's skin is warm and dry. Respiratory: Airway is patent Respiratory effort is even, unlabored. GI: Reports epigastric pain. : No signs and/or symptoms were reported regarding the genitourinary system. 06:00 GI: Abdomen is tender to palpation in epigastric area. kj2 07:15 Reassessment: Patient appears in no apparent distress at this time. No changes from kc6 previously documented assessment. Patient and/or family updated on plan of care and expected duration. Pain level reassessed. Patient is alert, oriented x 3, equal unlabored respirations, skin warm/dry/pink. Patient states feeling better. Patient states symptoms have improved. Vital Signs: 05:46 BP 135 / 94; Pulse 70; Resp 17 S; Temp 98.3(O); Pulse Ox 98% on R/A; Weight 108.86 kg lg3 (R); Height 5 ft. 11 in. (R); Pain 7/10; 06:00 BP 128 / 68; Pulse 83; Resp 20; Temp 98.2; Pulse Ox 95% on R/A; kj2 07:41 BP 124 / 58; Pulse 60; Resp 16 S; Pulse Ox 97% on R/A; Pain 2/10; kc6 05:46 Body Mass Index 33.47 (108.86 kg, 180.34 cm) lg3 05:46 Pain Scale: Adult lg3 07:41 Pain Scale: Adult kc6 ED Course: 05:31 Patient arrived in ED. jj6 05:47 Triage completed. lg3 05:47 Arm band placed on left wrist. lg3 05:49 Inserted saline lock: 22 gauge in right antecubital area, using aseptic technique. oe Blood collected. Flushed with 10 mL NS. 05:54 Aiden Nelson MD is Attending Physician. dom 06:00 Patient has correct armband on for positive identification. Call light in reach. Side kj2 rails up X 1. Provided Education on: call light. 06:02 Karla Newell RN is Primary Nurse. kj2 06:30 No provider procedures requiring assistance completed. kj2 06:49 US Abdomen Limited In Process Unspecified. EDMS 07:00 Report received from ORLIN Torres. kc6 07:00 Pulse ox on. NIBP on. Door closed. Noise minimized. Lights dimmed. Pillow given. kc6 07:03 Sylvester Hart MD is Referral Physician. dom 07:41 IV discontinued, intact, bleeding controlled, No redness/swelling at site. Pressure kc6 dressing applied. Administered Medications: 06:21 Drug: NS 0.9% IV 1000 ml IV at 1000 ml once; to be given as a bolus over 60 minutes kj2 Route: IV; Rate: 1000 ml; Site: right antecubital; 07:40 Follow up: Response: No adverse reaction; IV Status: Completed infusion; IV Intake: kc6 1000ml 06:22 Drug: GI Cocktail without - (Maalox PO 30 ml, Lidocaine Mucous Membrane 2 % 15 kj2 ml) PO once Route: PO; 07:40 Follow up: Response: No adverse reaction kc6 06:22 Drug: Pantoprazole IVP 80 mg IVP once Route: IVP; Site: right antecubital; kj2 07:40 Follow up: Response: No adverse reaction kc6 Medication: 06:30 VIS not applicable for this client. kj2 Intake: 07:40 IV: 1000ml; Total: 1000ml. kc6 Outcome: 07:03 Discharge ordered by . dom 07:41 Discharged to home ambulatory, kc6 07:41 Condition: improved 07:41 Discharge instructions given to patient, Instructed on discharge instructions, follow up and referral plans. medication usage, Demonstrated understanding of instructions, follow-up care, medications, Prescriptions given X 3, 07:41 Patient left the ED. kc6 Signatures: Dispatcher [employer] EDMS Aiden Nelson MD MD cha Espinosa, Orlando oe Able, Lacie, RN RN lg3 Korina Jeong6 Lou López RN RN kc6 Krala Newell, RN RN kj2
--- NOTE | 2024-06-06 07:03 | EDPHYS ---
Physician Documentation [facility] Name: Anthony Sotomayor Jr Age: 28 yrs Sex: Male : 1995 Arrival Date: 06/06/2024 Time: 05:31 Bed 15 Private MD: ED Physician Aiden Nelson HPI: 06/06 06:00 This 28 yrs old Black Male presents to ER via Ambulatory with complaints of Abdominal dom Pain. 06:00 The patient presents with abdominal pain in the upper abdomen. Onset: The dom symptoms/episode began/occurred 2 day(s) ago. The symptoms do not radiate. Associated signs and symptoms: none. Modifying factors: The symptoms are alleviated by antacids. Severity of pain: At its worst the pain was moderate in the emergency department the pain is unchanged. The patient has experienced similar episodes in the past, multiple times. Historical: - Allergies: 05:47 Bees; lg3 05:47 Iodine; lg3 05:47 SHELLFISH; lg3 - Home Meds: 05:47 None [Active]; lg3 - PMHx: 05:47 Asthma; lg3 - PSHx: 05:47 None; lg3 - Immunization history:: Adult Immunizations up to date. - Infectious Disease History:: Denies. - Social history:: Smoking status: Reported history of juuling and/or vaping. Patient/guardian denies using alcohol, street drugs. - Family history:: not pertinent. ROS: 06:00 Constitutional: Negative for fever, chills, and weight loss, Eyes: Negative for injury, dom pain, redness, and discharge, ENT: Negative for injury, pain, and discharge, Neck: Negative for injury, pain, and swelling, Cardiovascular: Negative for chest pain, palpitations, and edema, Respiratory: Negative for shortness of breath, cough, wheezing, and pleuritic chest pain, Back: Negative for injury and pain, : Negative for injury, bleeding, discharge, and swelling, MS/Extremity: Negative for injury and deformity, Skin: Negative for injury, rash, and discoloration, Neuro: Negative for headache, weakness, numbness, tingling, and seizure, Psych: Negative for depression, anxiety, suicide ideation, homicidal ideation, and hallucinations, Allergy/Immunology: Negative for hives, rash, and allergies, Endocrine: Negative for neck swelling, polydipsia, polyuria, polyphagia, and marked weight changes, Hematologic/Lymphatic: Negative for swollen nodes, abnormal bleeding, and unusual bruising, 06:00 Abdomen/GI: Positive for abdominal pain, of the epigastric area, Exam: 06:00 Constitutional: This is a well developed, well nourished patient who is awake, alert, dom and in no acute distress. Head/Face: Normocephalic, atraumatic. Eyes: Pupils equal round and reactive to light, extra-ocular motions intact. Lids and lashes normal. Conjunctiva and sclera are non-icteric and not injected. Cornea within normal limits. Periorbital areas with no swelling, redness, or edema. ENT: Nares patent. No nasal discharge, no septal abnormalities noted. Tympanic membranes are normal and external auditory canals are clear. Oropharynx with no redness, swelling, or masses, exudates, or evidence of obstruction, uvula midline. Mucous membranes moist. Neck: Trachea midline, no thyromegaly or masses palpated, and no cervical lymphadenopathy. Supple, full range of motion without nuchal rigidity, or vertebral point tenderness. No Meningismus. Chest/axilla: Normal chest wall appearance and motion. Nontender with no deformity. No lesions are appreciated. Cardiovascular: Regular rate and rhythm with a normal S1 and S2. No gallops, murmurs, or rubs. Normal PMI, no JVD. No pulse deficits. Respiratory: Lungs have equal breath sounds bilaterally, clear to auscultation and percussion. No rales, rhonchi or wheezes noted. No increased work of breathing, no retractions or nasal flaring. Back: No spinal tenderness. No costovertebral tenderness. Full range of motion. Male : Normal genitalia with no discharge or lesions. Skin: Warm, dry with normal turgor. Normal color with no rashes, no lesions, and no evidence of cellulitis. MS/ Extremity: Pulses equal, no cyanosis. Neurovascular intact. Full, normal range of motion. Neuro: Awake and alert, GCS 15, oriented to person, place, time, and situation. Cranial nerves II-XII grossly intact. Motor strength 5/5 in all extremities. Sensory grossly intact. Cerebellar exam normal. Normal gait. Psych: Awake, alert, with orientation to person, place and time. Behavior, mood, and affect are within normal limits. 06:00 ECG was reviewed by the Attending Physician. 06:00 Abdomen/GI: Inspection: distension, is not seen, Bowel sounds: normal, Palpation: mild abdominal tenderness, in the epigastric area, Liver: no appreciated palpable abnormalities, Hernia: not appreciated, 06:36 ECG was reviewed by the Attending Physician. [facility] Vital Signs: 05:46 BP 135 / 94; Pulse 70; Resp 17 S; Temp 98.3(O); Pulse Ox 98% on R/A; Weight 108.86 kg lg3 (R); Height 5 ft. 11 in. (R); Pain 7/10; 06:00 BP 128 / 68; Pulse 83; Resp 20; Temp 98.2; Pulse Ox 95% on R/A; kj2 07:41 BP 124 / 58; Pulse 60; Resp 16 S; Pulse Ox 97% on R/A; Pain 2/10; kc6 05:46 Body Mass Index 33.47 (108.86 kg, 180.34 cm) lg3 05:46 Pain Scale: Adult lg3 07:41 Pain Scale: Adult kc6 MDM: 05:55 Patient medically screened. dom 06:04 Differential diagnosis: Cholelithiasis, gastritis, gastroesophageal reflux disease, dom non-specific abd pain, pancreatitis, Peptic Ulcer Disease. Data reviewed: vital signs, nurses notes, lab test result(s), EKG, radiologic studies, ultrasound. Consideration of Admission/Observation Escalation of care including admission/observation considered. I considered the following discharge prescriptions or medication management in the emergency department Medications were administered in the Emergency Department. See MAR. Independent interpretation of the following test(s) in the Emergency Department EKG: See my EKG interpretation above. Test considered but Not performed: CT: no ct abd/pel. Care significantly affected by the following chronic conditions: asthma. 06/06 06:00 Order name: CBC with Diff; Complete Time: 06:40 [facility] 06/06 06:00 Order name: Comprehensive Metabolic Panel; Complete Time: 06:53 [facility] 06/06 06:00 Order name: Lipase; Complete Time: 06:53 [facility] 06/06 06:00 Order name: US Abdomen Limited [facility] 06/06 06:00 Order name: EKG - Nurse/Tech; Complete Time: 06:22 [facility] EC:36 Rate is 66 beats/min. Rhythm is regular. QRS [place] is Normal. OR interval is normal. QRS dom interval is normal. QT interval is normal. No Q waves. T waves are Normal. No ST changes noted. Clinical impression: NSR w/ Non-specific ST/T Changes, LVH, and No evidence of ischemia. Interpreted by me. Reviewed by me. Administered Medications: 06:21 Drug: NS 0.9% IV 1000 ml IV at 1000 ml once; to be given as a bolus over 60 minutes kj2 Route: IV; Rate: 1000 ml; Site: right antecubital; 07:40 Follow up: Response: No adverse reaction; IV Status: Completed infusion; IV Intake: kc6 1000ml 06:22 Drug: GI Cocktail without - (Maalox PO 30 ml, Lidocaine Mucous Membrane 2 % 15 kj2 ml) PO once Route: PO; 07:40 Follow up: Response: No adverse reaction kc6 06:22 Drug: Pantoprazole IVP 80 mg IVP once Route: IVP; Site: right antecubital; kj2 07:40 Follow up: Response: No adverse reaction kc6 Disposition Summary: 06/06/24 07:03 Discharge Ordered Notes: Location: Home dom Problem: new dom Symptoms: have improved dom Condition: Stable dom Diagnosis - Epigastric pain dom - Acute gastritis without bleeding dom - Hyperglycemia, unspecified dom - Type 2 diabetes mellitus with hyperglycemia - new onset dom Followup: dom - With: Private Physician - When: 2 - 3 days - Reason: Recheck today's complaints, Continuance of care, Re-evaluation by your physician Followup: dom - With: Sylvester Hart MD - When: 2 - 3 days - Reason: Recheck today's complaints, Re-evaluation by your physician Discharge Instructions: - Discharge Summary Sheet dom - Abdominal Pain, Adult dom - Type 2 Diabetes Mellitus, Diagnosis, Adult dom - Food Choices for Gastroesophageal Reflux Disease, Adult dom - Gastritis, Adult dom - Gastroesophageal Reflux Disease, Adult dom - Hyperglycemia dom - Gastritis, Adult, [id number] dom - Abdominal Pain, Adult, Mbxa-[id number] dom - Gastroesophageal Reflux Disease, Adult, Jsyv-tk-Iifd dom - Diabetes Mellitus and Nutrition, Adult dom - Food Choices for Gastroesophageal Reflux Disease, Adult, Wtes-bl-Vahs dom Forms: - Work release form bd - Medication Reconciliation Form dom - Antibiotic Education dom - Prescription Opioid Use dom - Patient Portal Instructions [facility] - Leadership Thank You Letter [facility] Prescriptions: - Carafate 1 gram Oral Tablet - take 1 tablet ORAL route 4 times per day take on an empty stomach, beginning on dom waking and last dose at bedtime; 100 tablet; Refills: 0, Product Selection Permitted - Protonix 40 mg Oral Tablet - take 1 tablet ORAL route once daily; 30 tablet; Refills: 0, Product Selection [facility] Permitted - Metformin 500 mg Oral tablet - take 1 tablet ORAL route once daily for 14 days; 28 tablet; Refills: 0, Product [facility] Selection Permitted Signatures: Dispatcher [employer] [facility] Aiden Nelson MD MD cha Able, Lacie, RN RN lg3 Karla Newell RN RN kj2 Lou López RN kc6 Corrections: (The following items were deleted from the chart) 06:01 06:01 Abdomen Limited+US.RAD.BRZ ordered. [facility] 06:36 06:00 Rate is 70 beats/min. Rhythm is regular. QRS [place] is Normal. OR interval is dom normal. QRS interval is normal. QT interval is normal. No Q waves. T waves are Normal. No ST changes noted. Clinical impression: NSR w/ Non-specific ST/T Changes and No evidence of ischemia. Interpreted by me. Reviewed by me. [facility]
--- NOTE | 2024-06-06 07:37 | RAD REPORT ---
EXAM: Right upper quadrant ultrasound. CLINICAL HISTORY: ABD PAIN COMPARISON: 12/01/2021 FINDINGS: Gallbladder: Normal. Bile ducts: No intrahepatic or extrahepatic biliary dilatation. Common bile duct measures 2 mm. Limited imaging of the liver shows fatty liver. IMPRESSION: Negative gallbladder/biliary tree findings. Fatty liver.
[2024-06-06 09:17] VITALS: TEMP 98.2
[2024-06-06 09:19] VITALS: BP 124/58; O2SAT 97
--- NOTE | 2024-06-09 12:06 | EKG ---
Test Date: 2024-06-06 Test Time: 06:21:18 Vehicle Maintenance Supervisor: SUSAN MEASUREMENT RESULTS: Intervals: Rate: 66 OH: 156 QRSD: 92 QT: 374 QTc: 392 [place]: P: 28 OH: 156 QRS: -19 T: 17 INTERPRETIVE STATEMENTS: Normal sinus rhythm Minimal voltage criteria for LVH, may be normal variant Nonspecific T wave abnormality Abnormal ECG Compared to ECG 12/01/2021 11:43:35 T-wave abnormality now present Sinus arrhythmia no longer present ST (T wave) deviation no longer present Electronically Signed On 06-09-24 11:56:29 CDT by Blair Ruff
== END 2024-06-06 07:41 | disposition home or self-care (01) ==
LOC: ER 05:31
DX: K29.00 Acute gastritis without bleeding (principal); E11.65 Type 2 diabetes mellitus with hyperglycemia
CPT/HCPCS: 36415; 76705; 80053; 83690; 85025; 93005; 96361; 96374; 99284; J2470; J7030

== ENCOUNTER 2025-06-01 17:21 | Emergency (ER) | payer SELFPAY ==
[2025-06-01] MEDS ORDERED: CEFTRIAXONE 1000 MG/VIAL ONE (18:29)
[2025-06-01] MEDS ORDERED: IBUPROFEN 400 MG TAB ONE (18:29)
[2025-06-01] MEDS ORDERED: FLUCONAZOLE 100 MG TAB ONE (18:29)
[2025-06-01] MEDS ORDERED: AZITHROMYCIN 250 MG TAB ONE (18:29)
[2025-06-01] MEDS ORDERED: WATER FOR INJ,STERILE 10 ML ONE (18:30)
--- NOTE | 2025-06-01 18:58 | ER ---
Nurse's Notes [facility] Name: Anthony Sotomayor Jr Age: 29 yrs Sex: Male : 1995 Arrival Date: 06/01/2025 Time: 17:21 Bed 9 Private MD: Diagnosis: Phimosis;Encounter for screening for infections with a predominantly sexual mode of transmission Presentation: 06/01 17:43 Chief complaint: Patient states: red, itchiness to penile area, is uncircumcised and is iw having trouble pulling the foreskin back , started today. Coronavirus screen: At this time, the client does not indicate any symptoms associated with coronavirus-19. Ebola Screen: No symptoms or risks identified at this time. Initial Sepsis Screen: Does the patient meet any 2 criteria? No. Patient's initial sepsis screen is negative. Does the patient have a suspected source of infection? No. Patient's initial sepsis screen is negative. Risk Assessment: Do you want to hurt yourself or someone else? Patient reports no desire to harm self or others. 17:43 Method Of Arrival: Ambulatory iw 17:43 Acuity: KAMRAN 4 iw Historical: - Allergies: 17:45 Iodine; iw 17:45 Bees; iw 17:45 SHELLFISH; iw - PMHx: 17:45 Asthma; iw - Social history:: Smoking status: . Screenin:00 [facility] ED Fall Risk Assessment (Adult) History of falling in the last 3 months, jb4 including since admission No falls in past 3 months (0 pts) Confusion or Disorientation No (0 pts) Intoxicated or Sedated No (0 pts) Impaired Gait No (0 pts) Mobility Assist Device Used No (0 pt) Altered Elimination No (0 pt) Score/Fall Risk Level 0 - 2 = Low Risk Oriented to surroundings, Maintained a safe environment. Abuse screen: Denies threats or abuse. Nutritional screening: No deficits noted. Tuberculosis screening: No symptoms or risk factors identified. Assessment: 17:45 General: Appears in no apparent distress. comfortable, Behavior is calm, cooperative, jb4 appropriate for age. Pain: Complains of pain in head of penis Pain does not radiate. Pain currently is 4 out of 10 on a pain scale. Neuro: Level of Consciousness is awake, alert, obeys commands, Oriented to person, place, time, situation. Cardiovascular: Patient's skin is warm and dry. Respiratory: Airway is patent Respiratory effort is even, unlabored, Respiratory pattern is regular, symmetrical. : Swelling noted on penis. Derm: Skin is intact, Skin is pink, warm \T\ dry. Musculoskeletal: Circulation, motion, and sensation intact. Range of motion: intact in all extremities. 19:00 Reassessment: Patient appears in no apparent distress at this time. Patient and/or jb4 family updated on plan of care and expected duration. Pain level reassessed. Patient is alert, oriented x 3, equal unlabored respirations, skin warm/dry/pink. Vital Signs: 17:45 BP 148 / 86; Pulse 83; Resp 16; Temp 98.1; Pulse Ox 98% on R/A; Weight 99.79 kg; Height iw 6 ft. 0 in. ; 17:45 Body Mass Index 29.84 (99.79 kg, 182.88 cm) iw ED Course: 17:26 Patient arrived in ED. al6 17:28 Aiden Polanco PA-C is PHCP. cp 17:28 Juan R Antoine DO is Attending Physician. cp 17:44 Triage completed. iw 18:58 Alexis Kirby MD is Referral Physician. cp 19:31 Patient has correct armband on for positive identification. Bed in low position. Call jb4 light in reach. Side rails up X 1. Provided Education on: discharge instructions.. 19:31 No provider procedures requiring assistance completed. Patient did not have IV access jb4 during this emergency room visit. Administered Medications: 18:45 Drug: AZITHromycin PO 1 grams PO once Route: PO; jb4 19:08 Follow up: Response: No adverse reaction jb4 18:45 Drug: Fluconazole PO 400 mg PO once Route: PO; jb4 19:08 Follow up: Response: No adverse reaction jb4 18:45 Drug: Ibuprofen PO 800 mg PO once Route: PO; jb4 19:08 Follow up: Response: No adverse reaction jb4 19:08 Drug: Rocephin (cefTRIAXone) IM 1 grams IM once Route: IM; Site: right gluteus; jb4 19:23 Follow up: Response: No adverse reaction jb4 Medication: 19:00 VIS not applicable for this client. jb4 Outcome: 18:58 Discharge ordered by . cp 19:31 Discharged to home ambulatory, jb4 19:31 Condition: stable 19:31 Discharge instructions given to patient, Instructed on discharge instructions, no drinking with medication, medication usage, safe sex practices, Demonstrated understanding of instructions, follow-up care, medications, Prescriptions given X 3, 19:32 Patient left the ED. jb4 Signatures: Meseret Kohli RN RN Aiden Fry PA-C PARosendo Hurst cp, RN RN jb4 Danitza Carter al6
--- NOTE | 2025-06-01 18:58 | EDPHYS ---
Physician Documentation [facility] Name: Anthony Sotomayor Jr Age: 29 yrs Sex: Male : 1995 Arrival Date: 06/01/2025 Time: 17:21 Bed 9 Private MD: ED Physician Juan R Antoine HPI: 06/01 18:25 This 29 yrs old Black Male presents to ER via Ambulatory with complaints of STD cp Exposure. 18:25 The patient presents with symptoms include purulent penile discharge, swelling, of the cp foreskin. Historical: - Allergies: 17:45 Iodine; iw 17:45 Bees; iw 17:45 SHELLFISH; iw - PMHx: 17:45 Asthma; iw - Social history:: Smoking status: . ROS: 18:30 Constitutional: Negative for body aches, chills, fever, poor PO intake, cp 18:30 Eyes: Negative for injury, pain, redness, and discharge, cp 18:30 Abdomen/GI: Negative for abdominal pain, vomiting, diarrhea, constipation, 18:30 : Positive for penile discharge, swelling of foreskin, Negative for difficulty urinating, 18:30 Skin: Negative for rash, 18:30 All other systems are negative, Exam: 18:33 Constitutional: The patient appears in no acute distress, alert, awake, non-toxic, well cp developed, well nourished, 18:33 Head/Face: Normocephalic, atraumatic. cp 18:33 Eyes: Periorbital structures: appear normal, Conjunctiva: normal, no exudate, no injection, Sclera: no appreciated abnormality, Lids and lashes: appear normal, bilaterally, 18:33 ENT: External ear(s): are unremarkable, Nose: is normal, Mouth: Lips: moist, Oral mucosa: moist, Posterior pharynx: Airway: no evidence of obstruction, patent, 18:33 Chest/axilla: Inspection: normal, 18:33 Cardiovascular: Rate: normal, 18:33 Respiratory: the patient does not display signs of respiratory distress, Respirations: normal, no use of accessory muscles, no retractions, labored breathing, is not present, 18:33 Abdomen/GI: Inspection: abdomen appears normal, Palpation: abdomen is soft and non-tender, in all quadrants, 18:33 : Male external genitalia: lesion, absent, ulceration, is not present, uncircumcised, swelling of foreskin causing difficulty retracting, purulent discharge noted head of penis, Sexual behavior: the patient is sexually active, and reports multiple partners, Vital Signs: 17:45 BP 148 / 86; Pulse 83; Resp 16; Temp 98.1; Pulse Ox 98% on R/A; Weight 99.79 kg; Height iw 6 ft. 0 in. ; 17:45 Body Mass Index 29.84 (99.79 kg, 182.88 cm) iw MDM: 17:40 Medical Screening Exam initiated cp 18:58 Data reviewed: vital signs, nurses notes, lab test result(s), urinalysis. cp 06/01 17:41 Order name: UA Rfx Jason Cult if indicated; Complete Time: 14:36 cp 06/02 14:36 Interpretation: Normal except: Urine SG > 1.030; UGLUC 4+ (Over); UESTR 250; UWBC cp 20-50; URBC 5-10. 06/01 17:41 Order name: GC (Vishal/Chl) Probe URINE 06/01 19:13 Order name: Urine Culture EDMS Administered Medications: 18:45 Drug: AZITHromycin PO 1 grams PO once Route: PO; jb4 19:08 Follow up: Response: No adverse reaction jb4 18:45 Drug: Fluconazole PO 400 mg PO once Route: PO; jb4 19:08 Follow up: Response: No adverse reaction jb4 18:45 Drug: Ibuprofen PO 800 mg PO once Route: PO; jb4 19:08 Follow up: Response: No adverse reaction jb4 19:08 Drug: Rocephin (cefTRIAXone) IM 1 grams IM once Route: IM; Site: right gluteus; jb4 19:23 Follow up: Response: No adverse reaction jb4 Disposition Summary: 06/01/25 18:58 Discharge Ordered Notes: Location: Home cp Problem: new cp Symptoms: have improved cp Condition: Stable cp Diagnosis - Phimosis cp - Encounter for screening for infections with a predominantly sexual mode of cp transmission Followup: cp - With: Alexis Kirby MD - When: 1 week - Reason: Recheck today's complaints Discharge Instructions: - Discharge Summary Sheet cp - Phimosis, Pediatric cp - Circumcision Information cp - Health Maintenance, Male cp - Preventing Sexually Transmitted Infections, Adult cp Forms: - Medication Reconciliation Form cp - Antibiotic Education cp - Prescription Opioid Use cp - Patient Portal Instructions cp - Leadership Thank You Letter cp Prescriptions: - nystatin 100,000 unit/gram Topical cream - apply 1 application TOPICAL route 3 times per day for 8-10 days; 45 gram tube; cp Refills: 0, Product Selection Permitted - Ibuprofen 800 mg Oral Tablet - take 1 tablet ORAL route every 8 hours As needed take with food; 30 tablet; cp Refills: 0, Product Selection Permitted - Doxycycline Monohydrate 100 mg Oral Tablet - take 1 tablet ORAL route every 12 hours for 10 days; 20 tablet; Refills: 0, cp Product Selection Permitted Addendum: 06/02/2025 21:12 I was immediately available on-site in the Emergency Department for consultation in the m s3 care of the patient. Signatures: Dispatcher [employer] Meseret Santiago, RN RN Aiden Fry PA-C PA-C cp Bryson, James, RN RN jb4 Juan R Antoine DO DO ms3 Corrections: (The following items were deleted from the chart) 14:30 06/01 18:00 This 29 yrs old Black Male presents to ER via Ambulatory with complaints of cp STD Exposure. cp
[2025-06-01 19:05] LABS: Sqamous Epithelial <5 /HPF (None Seen); Urine Crystals Unidentified Few /HPF (None Seen); Urine Culture Reflex Order REFLEXED; Urine Microscopic Reflex YN ORDER UMIC
[2025-06-01 20:01] VITALS: BP 148/86; TEMP 98.1; O2SAT 98
[2025-06-05 22:50] LABS: C.trachomatis RNA,TMA Not Detected (Not Detected); N.gonorrhoeae RNA,TMA Not Detected (Not Detected)
== END 2025-06-01 19:32 | disposition home or self-care (01) ==
LOC: ER 17:21
DX: N47.1 Phimosis (principal); Z11.3 Encounter for screening for infections with a predominantly sexual mode of transmission
CPT/HCPCS: 81001; 87077; 87086; 87088; 87186; 87490; 87590; 96372; 99284; J0696